=== PATIENT | male | born 1960 | race Caucasian/White ===

== ENCOUNTER 2020-08-06 14:03 | Inpatient (IN) | payer SELFPAY ==
[2020-08-06] VITALS (7 sets, daily range): BP systolic 129–143; BP diastolic 80–95; PULSE 63–89; RESP 15–16; TEMP 36.6–36.8; O2SAT 97–98; BMI 28.7
--- NOTE | ~2020-08-06 | US_ITS ---
EXAMINATION: US venous doppler LE EXAM DATE: 08/07/2020 15:29 INDICATION: Acute stroke, right leg swelling. TECHNIQUE: Multiple grayscale, color flow and Doppler images of the lower extremity deep venous syste ms bilaterally were obtained and reviewed. There is no prior study for comparison. FINDINGS: Right side: The right common femoral, femoral and profunda veins demonstrate normal color flow, respi ratory variation, augmentation and compressibility. Compressibility, color flow confirmed within the right popliteal, posterior tibial, peroneal, and greater saphenous veins. Left side: The left common femoral, femoral and profunda veins demonstrate normal color flow, respira tory variation, augmentation and compressibility. Compressibility, color flow confirmed within the l eft popliteal, posterior tibial, peroneal, and greater saphenous veins. IMPRESSION: 1. No lower extremity deep venous thrombosis bilaterally. Reviewed, dictated and finalized at location A.
--- NOTE | ~2020-08-06 | CT_ITS ---
EXAMINATION: CT brain wo con EXAM DATE: 08/06/2020 17:14 INDICATION: Severe headache . TECHNIQUE: Spiral CT of the head was performed without contrast. Axial, coronal and sagittal images were reviewed. The dose-length product (DLP) for this examination was 605.33 mGy-cm. The exposure w as tailored according to patient size, and iterative reconstruction (ASIR) was used as additional dos e reduction technique. There is no prior study for comparison. FINDINGS: There are several small left cerebellar infarctions which are at least 24 hours, could be a cute to subacute. There is no acute intraparenchymal hemorrhage. No evidence of intraparenchymal brain mass lesion. T here is no mass effect or midline shift. The ventricles are normal in size. There are no extra-axia l collections. There are no acute calvarial fractures. The orbits are unremarkable. Soft tissue is unremarkable. The visualized sinuses and mastoid air cells are well aerated. IMPRESSION: 1. Several small left cerebellar infarctions, could be acute to subacute. Reviewed, dictated and finalized at location A.
--- NOTE | ~2020-08-06 | US_ITS ---
EXAMINATION: US carotid duplex BI EXAM DATE: 08/07/2020 10:20 INDICATION: Left cerebellar strokes. Severe headache, dizziness, lightheadedness. TECHNIQUE: Grayscale, color and pulsed Doppler images of the cervical carotid arteries were obtained . The degree of vessel stenosis is placed in one of the following categories: normal, <50% stenosis, 50-69% stenosis, >=70% stenosis but less than near-occlusion, near-occlusion, or occlusion. Note that percent stenosis relative to normal distal artery lumen diameter is indirectly measured from velocit y measurements as described by Malik, et al. Radiology 2003; 229:340-346. There is no prior study fo r comparison. FINDINGS: RIGHT SIDE: Right common carotid artery peak systolic velocity (PSV in cm/s): 138 Right bulb/internal carotid artery peak systolic velocity (PSV in cm/s): 128 Right internal carotid artery end diastolic velocity (EDV in cm/s): 27 Right ICA/CCA peak systolic ratio: 0.9 Right external carotid artery peak systolic velocity (PSV in cm/s): 189 Right vertebral artery antegrade flow: yes There is minimal carotid bulb plaque with discordant mildly elevated velocity. Visually, less than 50% stenosis category. LEFT SIDE: Left common carotid artery peak systolic velocity (PSV in cm/s): 136 Left bulb/internal carotid artery peak systolic velocity (PSV in cm/s): 159 Left internal carotid artery end diastolic velocity (EDV in cm/s): 36 Left ICA/CCA peak systolic ratio: 1.2 Left external carotid artery peak systolic velocity (PSV in cm/s): 136 Left vertebral artery antegrade flow: No, reversed There is mild carotid bulb plaque with discordant mildly elevated velocity. Visually, less than 50% stenosis category. IMPRESSION: 1. Less than 50 percent stenosis in the right internal carotid artery. 2. Less than 50 percent stenosis in the left internal carotid artery. 3. Mild reversal flow demonstrated in the left vertebral artery, however no subclavian artery stenos is on the yesterday's CT angiogram. 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 Both vertebral arteries appear congenitally small. > Reviewed, dictated and finalized at location A. IMPRESSION: 1. Less than 50 percent stenosis in the right internal carotid artery. 2. Less than 50 percent stenosis in the left internal carotid artery. 3. Mild reversal flow demonstrated in the left vertebral artery, however no scott bclavian artery stenosis on the yesterday's CT angiogram. 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 Both vertebral arteries appear congenitally small. >
--- NOTE | ~2020-08-06 | MR_ITS ---
EXAMINATION: MR brain/brain stem wo/w con EXAM DATE: 08/07/2020 07:44 INDICATION: Cerebellar stroke, lightheadedness resolved, left frontal headache. Abnormal head CT. TECHNIQUE: Magnetic resonance imaging (MRI) of the brain/brain stem obtained without contrast. Sagit gage T1, axial diffusion, gradient echo (T2*), T1, T2, FLAIR sequences obtained. Patient was then inj ected with 20 cc intravenous Multihance contrast. Axial and coronal postcontrast T1 weighted sequence s obtained. Correlation is made to head CT from yesterday. FINDINGS: There are several small acute to subacute infarctions in the left side of the cerebellum, t hese were the lesion seen on CT and demonstrate low T1 signal. There is an acute larger left cerebell ar infarction inferiorly which was not identified on CT, is more recent than the other smaller infarc tions. Minimal microangiopathy in mild cerebral atrophy. There is no acute hemorrhage seen on the T2*, a hem osiderin sensitive sequence. No intraparenchymal brain mass. The ventricles are normal in size. The re are no extra-axial collections. Flow voids are seen in the cerebral arteries on the T2-weighted s equences consistent with their expected patency. The orbits are unremarkable. Soft tissue is unrema rkable. There are no areas of abnormal enhancement on the postcontrast images. IMPRESSION: Scattered left cerebellar infarctions involving approximately 50% of left cerebellar peyton sphere, bearing ages from acute to early subacute. Reviewed, dictated and finalized at location G. IMPRESSION: Scattered left cerebellar infarctions involving approximately 50% o f left cerebellar hemisphere, bearing ages from acute to early subacute.
--- NOTE | ~2020-08-06 | CT_ITS ---
EXAMINATION: CTA brain carotid EXAM DATE: 08/06/2020 18:19 INDICATION: Dizziness, lightheadedness, headaches since [address], left cerebellar infarctions believed to be acute-subacute. TECHNIQUE: Spiral CTA of the carotid arteries was performed with intravenous injection 100 cc of Om nipaque 350. Axial, coronal, sagittal reformatted images reviewed. Additional reformatted images cre ated on dedicated 3-D workstation. NASCET comparable standard used to assess the degree of arterial stenosis. Spiral CT angiogram cerebral arteries performed with the same intravenous injection of con trast. Source images of the brain CTA transferred to dedicated workstation for 3-D rotational image c reation. Coronal, sagittal maximum intensity pixel images also reviewed. The dose-length product (D LP) for this examination was 1216.07 mGy-cm. The exposure was tailored according to patient size, a nd iterative reconstruction (ASIR) was used as additional dose reduction technique. Correlation is ma de to noncontrast head CT earlier same date. FINDINGS: Mild bilateral carotid bulb arterial sclerosis with 0% stenosis bilaterally. Both vertebral arteries are small, left appears occluded proximally with reconstitution along the cervical spine. There is no carotid or vertebral basilar arterial dissection or fibromuscular dysplasia. There are no cerebral artery aneurysms. There is symmetric cerebral artery arborization. The sagittal, transverse and sigmoid sinuses enhance normally, no venous sinus thrombosis. Internal cerebral veins also enhan ce normally. Several left cerebellar hypodensities again noted probably acute to subacute infarctions. IMPRESSION: 1. Several small left cerebellar hypodensities consistent with acute to subacute infarctions. 2. Bilateral carotid bulb 0% stenosis. No dissection. Reviewed, dictated and finalized at location A. IMPRESSION: 1. Several small left cerebellar hypodensities consistent with acute to subacu te infarctions. 2. Bilateral carotid bulb 0% stenosis. No dissection.
--- NOTE | 2020-08-06 14:06 | ECG_ITS ---
Measurements Intervals Dania Rate: 65 P: 42 DE: 167 QRS: 63 QRSD: 101 T: 18 QT: 403 QTc: 420 Interpretive Statements SINUS RHYTHM DELAYED PRECORDIAL R/S TRANSITION BASELINE WANDER- II, III, AVF, V4 BORDERLINE ECG Electronically Signed On 08-06-2020 17:26:39 CDT by Armando Huerta D.O.
[2020-08-06 14:22] LABS: Basophils Absolute Auto 0.1 K/mm3 (0.0-0.1); Basophils Percent Auto 0.8 % (0.2-1.2); Eosinophils Absolute Auto 0.1 K/mm3 (0-0.3); Eosinophils Percent Auto 1.7 % (0-4.4); Hematocrit 49.1 % (42.0-52.0); Hemoglobin 16.3 g/dL (14.0-18.0); Immature Granulocyte Absolute 0.06 K/mm3 (0.00-0.031); Immature Granulocyte Percent A 0.8 % (0-0.5); Lymphocytes Absolute Auto 1.73 K/mm3 (0.9-3.2); Lymphocytes Percent Auto 22.1 % (18.3-44.2); Mean Corpuscular HGB Conc 33.2 g/dl (32-36); Mean Corpuscular Hemoglobin 28.8 pg (26-34); Mean Corpuscular Volume 86.7 fl (80-100); Mean Platelet Volume 10.8 fl (7.4-10.4); Monocytes Absolute Auto 0.5 K/mm3 (0.1-0.6); Monocytes Percent Auto 6.9 % (2.6-8.5); Neutrophils Absolute Auto 5.3 K/mm3 (1.3-6.7); Neutrophils Percent Auto 67.7 % (45.5-73.1); Platelet Count Result 242 k/mm3 (150-375); Red Blood Count 5.66 M/mm3 (4.6-6.20); Red Cell Distribution Width 13.6 % (11.5-14.5); White Blood Count 7.8 K/mm3 (4.5-10.0)
[2020-08-06 14:37] LABS: Anion Gap 12 mmol/L (8-16); Blood Urea Nitrogen 17 mg/dL (9-20); Carbon Dioxide 21 mmol/L (22-30); Chloride 107 mmol/L (98-107); Estimated CRCL calculation 83 ml/min; Estimated Glomerular Filt Rate > 60; Glucose 250 mg/dL (75-110); Sodium 140 mmol/L (137-145)
--- NOTE | 2020-08-06 15:28 | ED.DIZZY ---
HPI - Dizziness General Chief Complaint: Dizziness Stated Complaint: dizzy Time Seen by Provider: 08/06/20 15:19 History of Present Illness HPI Narrative: 60 yo male w/ h/o htn, DM presents to the ED from home for dizziness. He reports that he was driving when he suddenly became light headed and had to toe puller. this was associated with feeling warm and mildly nauseated. He had a previous episode this morning tara standing up from kneeling. That lasted only a few seconds. No chest pain, SOB, vomiting, fever. Related Data Allergies Allergy/AdvReac Type Severity Reaction Status Date / Time Sulfa (Sulfonamide Allergy Rash Verified 08/06/20 15:32 Antibiotics) Review of Systems Review of Systems: All systems reviewed & are unremarkable except as noted in HPI and below Constitutional: Constitutional: Denies chills, Denies fever(s) and Denies weakness Eyes: Eyes: Reports no additional eye complaints ENT: Reports dizziness Cardiovascular: Cardiovascular: Denies chest pain Respiratory: Respiratory: Denies dyspnea Gastrointestinal: Gastrointestinal: Denies abdominal pain, Denies diarrhea, Reports nausea and Denies vomiting Genitourinary: Genitourinary: Reports no additional male genitourinary complaints Musculoskeletal: Musculoskeletal: Denies back pain Neurologic: Reports dizziness, Denies syncope, Reports headache(s), Denies numbness and Denies weakness REPLACED BY [facility] Past Medical History Medical History (Updated 08/06/20 @ 18:04 by Malik Mcarthur MD) Diabetes mellitus HTN (hypertension) Social History Social History (Updated 08/06/20 @ 16:37 by Malik Mcarthur MD) Substance use: never Exam Const: General: healthy appearing, no acute distress and alert Orientation/consciousness: patient oriented x3 HENMT: Head: normal to inspection Ears: TM's normal bilaterally and EAC's normal Face and sinus: normal facial exam Eyes: Conjunctivae: conjunctivae normal Pupils: Equal, round and reactive pupils present EOM: EOMs intact bilaterally Neck: Neck: normal visual inspection and no lymphadenopathy Chest: Chest palpation & inspection: no tenderness Resp: Effort & Inspection: normal respiratory effort Auscultation: clear to auscultation bilaterally, no rales, no rhonchi and no wheezes Cardio: Jugular venous distension: no JVD Rate: regular rate Rhythm: regular rhythm Heart sounds: no murmurs GI: Inspection: non-distended GI Palp: Yes Soft to palpation and No Tenderness to palpation present (GI) Skin: General skin exam: normal color Neuro: General: patient oriented x3, moves all extremities, no focal motor deficits and CN's II-XI intact bilaterally Cranial nerves: Yes Nystagmus not present and Yes Midline tongue present Cognition (Neuro): normal cognition Speech: normal speech Gait exam (Neuro): Normal gait present Motor exam (neuro): 5/5 motor strength present throughout, Pronator motor function not present and Normal motor muscle tone present throughout Sensory Exam: normal sensation Coordination: [id number] test normal and [id number] test normal Extrem: General: normal to inspection and no edema Psych: Appearance: well kempt Affect: normal affect Course Vital Signs Vital signs: Vital Signs Temperature 36.8 C 08/06/20 14:06 Pulse Rate 63 08/06/20 14:06 Respiratory Rate 16 08/06/20 14:06 Blood Pressure 134/80 08/06/20 14:06 Pulse Oximetry 98 08/06/20 14:06 Temperature 36.8 C 08/06/20 14:06 Pulse Rate 82 08/06/20 17:31 Respiratory Rate 15 08/06/20 17:31 Blood Pressure 142/92 H 08/06/20 17:31 Pulse Oximetry 98 08/06/20 17:31 MDM - Dizziness MDM Narrative Medical decision making narrative: Stroke scale 0. Symptoms have completely resolved. No indication for TPA. He will need admission for further testing and risk reduction. Pateint discussed with Dr. Kendrick. He will consult Differential Diagnosis Differential diagnosis: Likely benign par
[2020-08-06] MEDS: MECLIZINE HCL 25 MG TABLET PO (16:14)
[2020-08-06] MEDS: SODIUM CHLORIDE 0.9% IV 1,000 ML 999 ML IV CONT (16:16)
[2020-08-06] MEDS: METOCLOPRAMIDE HCL INJ 10 MG/2 ML VIAL IV PUSH (17:30)
[2020-08-06] MEDS: ASPIRIN 81 MG CHEWABLE TABLET 324 MG PO (18:20)
--- NOTE | 2020-08-06 18:36 | PC.NURSE ---
SBAR faxed and 3 medsurg notified
--- NOTE | 2020-08-06 19:59 | ADMGEN ---
This patient, Tommy Lamar, was admitted to [facility] Surg Room 328-01. Patient/family oriented to hospital policies and general routines including ID bracelet, bed and alarms, visiting hours, pain management, procedures, bathroom and other care routines, personal items, smoking policy, room service/diet, and visiting hours. Information on how to activate the Rapid Response Team has been discussed. Patient/Family are encouraged to report perceived risks to care and to ask questions if they do not understand what they are told or what they should do.
--- NOTE | 2020-08-06 23:57 | PM.IMHP ---
H&P: HPI History of Present Illness Date/Time: 08/06/20 23:57 Near syncope Chief Complaint: Near-syncope Narrative: This is a 60-year-old male with past medical history significant for type 2 diabetes mellitus hypertension and degenerative joint disease fusion surgery of the right ankle carpal tunnel syndrome patient was driving himself today to work when he had an episode of warmth tingling and dizziness while driving he taffy puller the pull-up over to the shoulder and was brought to the emergency room patient has been in his usual state of health up until this happen in the morning he states that he had taken his usual medications in the morning and had breakfast. He denies any fevers chills rigors ,nausea, vomiting ,diarrhea, abdominal pain, headaches ,changes in vision, no focal weakness ,no chest pain ,no palpitations ,no PND ,no orthopnea ,no leg swelling. Preliminary workup was significant for acute to subacute cerebellar infarcts on the CTA of head and neck. At the time of my visit patient denied any concerns or issues no complaints. Review of Systems Review of Systems: Narrative: Patient had episode of wire with dizziness near-syncope while driving Constitutional: Constitutional: Denies chills, Denies fatigue, Denies fever(s), Denies poor appetite and Denies weakness Eyes: Eyes: Denies change in vision ENT: Denies vertigo, Reports dizziness, Denies hearing loss, Denies nasal congestion and Denies nasal discharge Cardiovascular: Cardiovascular: Denies chest pain, Denies leg edema, Reports lightheadedness, Denies radiating jaw, neck or arm pain, Denies palpitations and Denies dyspnea Respiratory: Respiratory: Denies cough and Denies dyspnea Gastrointestinal: Gastrointestinal: Denies abdominal pain, Denies GI cramping, Denies dysphagia, Denies dyspepsia, Denies heartburn, Denies nausea and Denies vomiting Genitourinary: Genitourinary: Denies dysuria Musculoskeletal: Musculoskeletal: Denies arthralgias and Denies joint swelling Comments: Right ankle fusion Integumentary/Breasts: Skin/Breast: Denies skin ulcer and Denies sores Neurologic: Denies Abnormal speech present, Denies dizziness, Denies syncope, Denies focal weakness, Denies loss of vision, Denies Sensory deficit (Neuro) and Denies tingling Hematologic/Lymphatic: Hematologic/Lymphatic: Denies no additional hematologic/lymphatic complaints Allergic/Immunologic: Allergic/Immunologic: Denies no additional allergic/immunologic complaints [facility] Past Medical History Medical History (Updated 08/07/20 @ 00:00 by Misti Dahl MD) Diabetes mellitus HTN (hypertension) Family History Family History (Updated 08/06/20 @ 22:48 by Clara Garcia RN) Father Diabetes mellitus Mother Diabetes mellitus Father Non-Hodgkin lymphoma Social History Social History (Updated 08/06/20 @ 16:37 by Malik Mcarthur MD) Alcohol intake: former Substance use: never Gender identity (if verbalized by the patient): Male Spiritual care concerns: No Meds Home Medications and Allergies Home Medications Medication Instructions Recorded Confirmed Type Actos 45 mg PO DAILY 08/06/20 08/06/20 History atenolol 50 mg PO BID 08/06/20 08/06/20 History glyburide 10 mg PO BID 08/06/20 08/06/20 History lisinopril 5 mg BYMOUTH DAILY 08/06/20 08/06/20 History lovastatin 20 mg PO DAILY 08/06/20 08/06/20 History metformin 1,000 mg PO BID 08/06/20 08/06/20 History Allergies Allergy/AdvReac Type Severity Reaction Status Date / Time Sulfa (Sulfonamide Allergy Intermediate Rash Verified 08/06/20 20:19 Antibiotics) Vital Signs Vital Signs - 24 hr 08/06/20 14:06 08/06/20 15:33 08/06/20 15:34 Temperature 98.3 F Pulse Rate 63 69 67 Respiratory Rate 16 Blood Pressure 134/80 134/84 136/95 H Pulse Oximetry 98 08/06/20 15:36 08/06/20 17:31 08/06/20 19:38 Temperature Pulse Rate 74 82 89 Respiratory Rate 15 16 Blood Pressure 129/91 H 142/92 H 139/
[2020-08-07] VITALS (10 sets, daily range): BP systolic 134–141; BP diastolic 65–75; PULSE 72–86; RESP 16–18; TEMP 36.2–37.1; O2SAT 95–97
--- NOTE | 2020-08-07 | ECHO_ITS ---
Patient Info Name: Tommy Lamar Age: 60 years : 1960 Gender: Male Ht: 74 in Wt: 223 lbs BSA: 2.32 m2 HR: 81 bpm BP: 135 / 75 mmHg Heart Rhythm: Sinus Rhythm Technical Quality: Good Exam Date: 08/07/2020 12:25 PM Exam Location: [facility] Card Pulmonary Patient Status: Inpatient Admit Date: 08/06/2020 Staff Ordering Physician: Malik Mcarthur MD Acid Remover: FRANCES Attending Provider: Loretta Cifuentes MD Referring Physician: Blue RODRIGUEZ; Exam Type: CA echo doppler color flow Study Info Complete two-dimensional, color flow and Doppler transthoracic echocardiogram is performed. Summary 1. Complete two-dimensional, color flow and Doppler transthoracic echocardiogram is performed. 2. Left ventricular chamber size, wall thickness, systolic and diastolic function are normal with no regional wall motion abnormalities with an estimated ejection fraction of 65-70%. 3. No significant valve disease. 4. Normal sinus rhythm. Left Ventricle Left ventricular chamber dimension is normal. Left ventricular systolic function is normal, estimated at 65-70%. There is no increased left ventricular wall thickness. Left ventricular septal wall motion is normal. The left ventricular diastolic function is normal. Left ventricular chamber size, wall thickness, systolic and diastolic function are normal with no regional wall motion abnormalities with an estimated ejection fraction of 65-70%. Right Ventricle Right ventricular chamber dimension is normal. Right ventricular systolic function is normal. Left Atria Left atrial chamber dimension is normal. Right Atria Right atrial chamber dimension is normal. Aortic Valve The aortic valve is trileaflet. There is no aortic valve sclerosis. There is no aortic valve stenosis. There is no aortic valve regurgitation. Pulmonic Valve The pulmonic valve is normal. There is no pulmonic valve stenosis. There is no pulmonic regurgitation. Mitral Valve The mitral valve has normal leaflets. There is no mitral valve stenosis. There is no mitral valve regurgitation. Tricuspid Valve The tricuspid valve leaflets are normal. There is no significant tricuspid valve stenosis. There is trace tricuspid valve regurgitation. No pulmonary hypertension, estimated pulmonary arterial systolic pressure is Empty. Pericardium/Pleural The pericardium appears normal. There is no pericardial effusion. Inferior Vena Cava Normal inferior vena cava with >50% collapse upon inspiration consistent with Empty right atrial pressure, Empty. Aorta The aortic root size at the sinus of Valsalva is normal. The prox ascending aorta size is normal. Left Ventricular Outflow Tract Name Value Normal LVOT 2D LVOT Diameter 2.3 cm LVOT Doppler LVOT Peak Velocity 101 cm/s LVOT Peak Gradient 3 mmHg LVOT Mean Gradient 2 mmHg LVOT VTI 27 cm LVOT VTI/AV VTI Ratio 1.1 LVOT Stroke Volume 113 ml LV
--- NOTE | 2020-08-07 08:50 | ADMGEN ---
This patient, Tommy Lamar, was admitted to 3 [facility] Surg Room 328-01. Patient/family oriented to hospital policies and general routines including ID bracelet, bed and alarms, visiting hours, pain management, procedures, bathroom and other care routines, personal items, smoking policy, room service/diet, and visiting hours. Information on how to activate the Rapid Response Team has been discussed. Patient/Family are encouraged to report perceived risks to care and to ask questions if they do not understand what they are told or what they should do. blood sugars ordered for AC/HS and low dose sliding scale per Monika K. Blood sugar 151, so no coverage needed and will start at noon.
[2020-08-07] MEDS: lisinopriL 5 MG TABLET BY MOUTH (08:52)
[2020-08-07] MEDS: atenoloL 50 MG TABLET PO ×2 (08:52→20:23)
[2020-08-07 09:50] LABS: Glucose Point of Care 151 (65-105)
[2020-08-07 12:26] LABS: Glucose Point of Care 158 (65-105)
--- NOTE | 2020-08-07 12:58 | WPDNEURCNPN ---
Assessment and Plan Assessment and plan (1) Acute ischemic stroke: Code(s): I63.9 - Cerebral infarction, unspecified Status: Acute Additional Plan 60 years old admitted to the hospital for type 2 diabetes mellitus evaluation documented the subacute cerebellar infarct on the CTA of the head and neck confirmed by the MRI as the scattered left cerebellar infarctions with no mention about the edema. Patient himself has noted some gait dysfunction over the last several weeks raising the possibility of the tumor versus the old stroke. Was going to start him on Decadron but I will hold down because there is no significant edema and also will be able to better clarify with the ear with dealing with the old lesion, metastatic lesion or the new stroke Consult date: 08/07/20 Time Seen: 13:00 HPI: Tommy Lamar is a 60 year old male admitted to the hospital through the emergency room for the complaints of near syncopal in addition to the ongoing history of 1. Type 2 diabetes mellitus 2. Hypertension 3. Degenerative joint disease with history of right ankle surgery 4. Carpal syndrome. As per the information available patient was driving himself to work when he had an episode of vomitus, tingling sensation, and dizziness when he pulled over to the shoulder and then brought to the emergency room he gave no history of associated generalized symptomatology but initial evaluation in the emergency room documented him to have subacute cerebellar his stroke on CTA of the head and neck, as mentioned before past history is consistent with diabetes mellitus, being a former alcohol drinker but never substance abuser and taking his medications regularly for that is Actos, glyburide, lisinopril, lovastatin, and metformin, initial routine lab studies were unremarkable including CBC and BMP except the blood sugar of 158, the CT scan reveals several small left cerebellar infarction which could be secondary to the acute or subacute stroke in addition MRI documented scattered left cerebellar infarction involving approximately 50% of the left cerebellar hemisphere and the CTA documented again several small left cerebellar hypodensities consistent with acute to subacute infarction but bilateral carotid bulb only 0% stenosis patient at this stage is receiving Actos 45 mg daily along with glyburide 10 mg twice a day lisinopril 5 mg daily and lovastatin 20 mg daily in addition to metformin 1000 mg twice a day Review of Systems Review of Systems: All systems reviewed & are unremarkable except as noted in HPI and below PMFSH Past Medical History Medical History Diabetes mellitus HTN (hypertension) Family History Family History Father Diabetes mellitus Mother Diabetes mellitus Father Non-Hodgkin lymphoma Social History Social History Alcohol intake: former Substance use: never Gender identity (if verbalized by the patient): Male Spiritual care concerns: No Meds Home Medications and Allergies Home Medications Medication Instructions Recorded Confirmed Type Actos 45 mg PO DAILY 08/06/20 08/06/20 History atenolol 50 mg PO BID 08/06/20 08/06/20 History glyburide 10 mg PO BID 08/06/20 08/06/20 History lisinopril 5 mg BYMOUTH DAILY 08/06/20 08/06/20 History lovastatin 20 mg PO DAILY 08/06/20 08/06/20 History metformin 1,000 mg PO BID 08/06/20 08/06/20 History Allergies Allergy/AdvReac Type Severity Reaction Status Date / Time Sulfa (Sulfonamide Allergy Intermediate Rash Verified 08/06/20 20:19 Antibiotics) Vital Signs Vital Signs - 24 hr 08/06/20 14:06 08/06/20 15:33 08/06/20 15:34 Temperature 36.8 C Pulse Rate 63 69 67 Respiratory Rate 16 Blood Pressure 134/80 134/84 136/95 H Pulse Oximetry 98 08/06/20 15:36 08/06/20 17:31 08/06/20 19:38 Temperature Pulse Rate 74
--- NOTE | 2020-08-07 17:16 | PM.IMPN ---
Progress Note: A&P Assessment and Plan (1) Acute ischemic stroke: Code(s): I63.9 - Cerebral infarction, unspecified Status: Acute Assessment and Plan: EKG : sinus rhythm HR 65bpm ordered BLE DVT US. treating headaches Neurologist consulted, following recommendations STarted 81 mg Aspirin Echocardiogram done, awaiting report. MRI : Scattered left cerebellar infarctions involving approximately 50% of left cerebellar hemisphere, bearing ages from acute to early subacute. PT/OT Discontinued Lovastatin 20mg to Lipitor 40 mg daily Started Plavix today Carotid Doppler: Less than 50 percent stenosis in the right internal carotid artery. Less than 50 percent stenosis in the left internal carotid artery. Mild reversal flow demonstrated in the left vertebral artery, however no subclavian artery stenosis on the yesterday's CT angiogram. 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 Both vertebral arteries appear congenitally small. (2) T2DM (type 2 diabetes mellitus): Code(s): E11.9 - Type 2 diabetes mellitus without complications Status: Acute Assessment and Plan: Holding metformin, Actos, and glyburide Low dose Insulin sliding scale as needed 1800 calorie restricted diet - diabetic diet Accu-Cheks AC and HS checking A1C (3) HTN (hypertension): Code(s): I10 - Essential (primary) hypertension Status: Inactive Assessment and Plan: Resume home meds: atenolol, lisinopril Continue telemetry monitoring blood pressure controlled 135/75- 143/90 heart rate 72-89 no edema no crackles no sign of fluid overload or CHF Additional Plan 60 years old admitted to the hospital for type 2 diabetes mellitus evaluation documented the subacute cerebellar infarct on the CTA of the head and neck confirmed by the MRI as the scattered left cerebellar infarctions with no mention about the edema. Patient himself has noted some gait dysfunction over the last several weeks raising the possibility of the tumor versus the old stroke. Was going to start him on Decadron but I will hold down because there is no significant edema and also will be able to better clarify with the ear with dealing with the old lesion, metastatic lesion or the new stroke Subjective Date/time seen: 08/07/20 17:16 Tommy was resting in bed when I went to examine him. He was feeling better at the time of my exam. He is not having any unilateral weakness or paresthesias. He has history of a fused right ankle. 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 He denies any leg swelling, redness, or pain. He denies any chest pressure, chest pain, shortness of breath or dyspnea. He denies any trauma or possible source of infection. He denies any malaise or illness or periods of low ambulation or low activity. He admitted to having a headache since yesterday when this all started . He described his headache as perhaps being a sinus headache, and showed the location to be frontal lobe region. I have ordered flonase, claritin, IV tylenol, and will follow up with the nurse/patient to see if he needs any further intervention. He is not having any chest pain pressure, no shortness of breath or dyspnea, denies nausea vomiting diarrhea or constipation. He denies pain or blood with urination or with bowel movements. His CT scan of the brain showed several small left hypodensities of acute and subacute infarcts, no carotid stenosis and no dissection. He did not receive any tPA intervention, as his symptoms had been going on for a couple of weeks, with most recent episode yesterday morning and then he presented to the ER yesterday afternoon. His EKG at admission was sinus with a 65 beats per minute rate, his heart rhythm is regular at this time of my exam. His white count is 7.8, he has no known fevers, creatinine
[2020-08-07 17:20] LABS: Glucose Point of Care 191 (65-105)
[2020-08-07] MEDS: CLOPIDOGREL BISULFATE 75 MG TABLET PO (18:15)
[2020-08-07] MEDS: FLUTICASONE PROPIONATE 0.05% NA SPR 16 GM BTL (*BKC) 1 SPRAY NASAL (18:16)
[2020-08-07] MEDS: LORATADINE 10 MG TABLET PO (18:16)
[2020-08-07] MEDS: ATORVASTATIN 40 MG TABLET PO (18:17)
[2020-08-07] MEDS: ASPIRIN 81 MG ENTERIC TABLET PO (18:17)
[2020-08-07] MEDS: INSULIN ASPART (*BKC) 100 UNITS/ML SUB-Q (18:18)
--- NOTE | 2020-08-07 21:46 | PC.NURSE ---
Patient left at 2124, signing an AMA form. He appeared anxious, talking about his twin children and something about his partner having a stroke. He said that they required his presence at another hospital to discuss medical decisions for his unresponsive child.
[2020-08-07 22:52] LABS: Glucose Point of Care 222 (65-105)
[2020-08-08] VITALS (9 sets, daily range): BP systolic 131–164; BP diastolic 78–97; PULSE 74–88; RESP 16–20; TEMP 35.9–36.6; O2SAT 96–99
[2020-08-08 07:03] LABS: Basophils Absolute Auto 0.1 K/mm3 (0.0-0.1); Basophils Percent Auto 0.5 % (0.2-1.2); Eosinophils Absolute Auto 0.2 K/mm3 (0-0.3); Eosinophils Percent Auto 1.7 % (0-4.4); Hematocrit 44.6 % (42.0-52.0); Immature Granulocyte Absolute 0.03 K/mm3 (0.00-0.031); Immature Granulocyte Percent A 0.3 % (0-0.5); Lymphocytes Absolute Auto 1.64 K/mm3 (0.9-3.2); Lymphocytes Percent Auto 17.4 % (18.3-44.2); Mean Corpuscular HGB Conc 33.6 g/dl (32-36); Mean Corpuscular Hemoglobin 29.6 pg (26-34); Mean Platelet Volume 10.5 fl (7.4-10.4); Monocytes Absolute Auto 0.7 K/mm3 (0.1-0.6); Monocytes Percent Auto 7.1 % (2.6-8.5); Neutrophils Absolute Auto 6.9 K/mm3 (1.3-6.7); Platelet Count Result 206 k/mm3 (150-375); Red Blood Count 5.07 M/mm3 (4.6-6.20); Red Cell Distribution Width 13.5 % (11.5-14.5); White Blood Count 9.4 K/mm3 (4.5-10.0)
[2020-08-08 07:14] LABS: Alanine Aminotransferase 25 U/L (4-50); Alkaline Phosphatase 63 U/L (38-126); Anion Gap 6 mmol/L (8-16); Aspartate Amino Transferase 33 U/L (17-59); Bilirubin,Total 0.7 mg/dL (0.2-1.3); Blood Urea Nitrogen 15 mg/dL (9-20); CRP < 0.5 mg/dL (<1.0); Calcium 8.9 mg/dL (8.4-10.2); Carbon Dioxide 24 mmol/L (22-30); Chloride 108 mmol/L (98-107); Estimated CRCL calculation 83 ml/min; Estimated Glomerular Filt Rate > 60; Glucose 151 mg/dL (75-110); Potassium 3.7 mmol/L (3.4-5.0); Sodium 138 mmol/L (137-145)
[2020-08-08 07:18] LABS: Prothrombin Time 13.5 Seconds (11.1-14.7)
[2020-08-08 07:21] LABS: NT Pro B Type Natriuretic Pept 64 pg/mL (5-100)
[2020-08-08 07:34] LABS: Hemoglobin A1C 7.4 % (<5.7)
[2020-08-08 08:05] LABS: Erythrocyte Sedimentation Rate 20 mm/hr (0-20)
[2020-08-08 08:07] LABS: Glucose Point of Care 143 (65-105)
[2020-08-08] MEDS: ASPIRIN 81 MG ENTERIC TABLET PO (08:47)
[2020-08-08] MEDS: ATORVASTATIN 40 MG TABLET PO (08:47)
[2020-08-08] MEDS: lisinopriL 5 MG TABLET BY MOUTH (08:47)
[2020-08-08] MEDS: LORATADINE 10 MG TABLET PO (08:47)
[2020-08-08] MEDS: atenoloL 50 MG TABLET PO ×2 (08:48→21:15)
[2020-08-08] MEDS: CLOPIDOGREL BISULFATE 75 MG TABLET PO (08:49)
[2020-08-08] MEDS: diazePAM (*CRX) 2 MG TABLET PO (11:02)
[2020-08-08] MEDS: HYDROcodone/acetaminophen (*CRX) 5-325 MG TABLET 1 TAB PO (11:02)
[2020-08-08 11:36] LABS: Glucose Point of Care 156 (65-105)
--- NOTE | 2020-08-08 12:17 | PM.IMPN ---
Progress Note: A&P Assessment and Plan (1) Acute ischemic stroke: Code(s): I63.9 - Cerebral infarction, unspecified Status: Acute Assessment and Plan: EKG : sinus rhythm HR 65bpm ordered BLE DVT US. treating headaches Neurologist consulted, following recommendations: Decadron 4mg Q 6 hours for 5 days, with repeat Brain MRI in 2 weeks. STarted 81 mg Aspirin Echocardiogram done, awaiting report. MRI : Scattered left cerebellar infarctions involving approximately 50% of left cerebellar hemisphere, bearing ages from acute to early subacute. PT/OT Discontinued Lovastatin 20mg and increased to Lipitor 40 mg daily Started Plavix yesterday Carotid Doppler: Less than 50 percent stenosis in the right internal carotid artery. Less than 50 percent stenosis in the left internal carotid artery. Mild reversal flow demonstrated in the left vertebral artery, however no subclavian artery stenosis on the yesterday's CT angiogram. 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 Both vertebral arteries appear congenitally small. (2) T2DM (type 2 diabetes mellitus): Code(s): E11.9 - Type 2 diabetes mellitus without complications Status: Acute Assessment and Plan: Holding metformin, Actos, and glyburide Low dose Insulin sliding scale as needed 1800 calorie restricted diet - diabetic diet Accu-Cheks AC and HS checking A1C = 7.4 which patient stated is much improved, working hard with PCP to control better (3) HTN (hypertension): Code(s): I10 - Essential (primary) hypertension Status: Inactive Assessment and Plan: Resume home meds: atenolol, lisinopril Continue telemetry monitoring blood pressure controlled SBPs 130s heart rate 84 no edema no crackles no sign of fluid overload or CHF (4) Frontal headache: Code(s): R51.9 - Headache, unspecified Status: Acute Assessment and Plan: headache persists now for 2-3 days, improving slowly each day. may be anxiety or allergy related. BUT No evidence of Sinusitis on head scans. Ordered Flonase & clairitin, refusing Flonase. Encourage patient to increase his oral hydration, as he has only taken in approx. 1 L and then 1.5 L over the last 2 days. Treating headache with Valium and [place] today/overnight. Evaluation tomorrow morning for headache resolution prior to discharge. MUST continue to avoid Imitrex due to CVA. headache now improved to 1-2 level/10 after valium/[place]. Planning for discharge tomorrow, if no new concerns over night. Additional Plan 60 years old admitted to the hospital for type 2 diabetes mellitus evaluation documented the subacute cerebellar infarct on the CTA of the head and neck confirmed by the MRI as the scattered left cerebellar infarctions with no mention about the edema. Patient himself has noted some gait dysfunction over the last several weeks raising the possibility of the tumor versus the old stroke. Was going to start him on Decadron but I will hold down because there is no significant edema and also will be able to better clarify with the ear with dealing with the old lesion, metastatic lesion or the new stroke Subjective Date/time seen: 08/08/20 12:17 Tommy' headache persists. He is anxious about his vehicle being in lock up today and worked up about how he will get home at discharge. Encourage patient to increase his oral hydration, as he has only taken in approx. 1 L and then 1.5 L over the last 2 days. Starting Decadron 4mg Q 6 hours for 5 days per Neurologist, with repeat Brain MRI in 2 weeks. Treating headache with Valium and [place] today/overnight. No evidence of Sinusitis on head scans. Ordered him Flonase and clairitin, refusing Flonase at this time. Evaluation tomorrow morning for headache resolution prior to discharge. MUST continue to avoid Imitrex due to CVA. Planning for discharge tomorrow, if no new concerns over night. Review of Systems Review o
--- NOTE | 2020-08-08 12:41 | WPDNEUROPN ---
Progress Note: A&P Assessment and Plan (1) Acute ischemic stroke: Code(s): I63.9 - Cerebral infarction, unspecified Status: Acute (2) T2DM (type 2 diabetes mellitus): Code(s): E11.9 - Type 2 diabetes mellitus without complications Status: Acute Additional Plan symptomatic treatment for the headache, Decadron started for 5 days, patient wants to go home but lives 2 [place] farther will definitely need a repeat MRI in 2 weeks was advised to give us a call Review of Systems Review of Systems: All systems reviewed & are unremarkable except as noted in HPI and below Exam Const: General: cooperative, healthy appearing and no acute distress Nutritional Appearance: average body habitus Orientation/consciousness: oriented to person, oriented to place and oriented to time Limitations: no limitations HENMT: Head: normal to inspection Ears: hearing grossly normal bilaterally General nose exam: Normal external nose present Face and sinus: normal facial exam Mouth: Yes Normal oral and palatal mucosa present Eyes: General: appearance normal, both eyes and all related structures Neck: Neck: full ROM Resp: Effort & Inspection: normal respiratory effort Auscultation: clear to auscultation bilaterally Cardio: Rate: regular rate Rhythm: regular rhythm GI: Auscultation: normal bowel sounds Skin: General skin exam: no rashes or lesions noted Neuro: General: patient oriented x3 Cranial nerves: Yes CN's II-XII intact bilaterally Cognition (Neuro): normal cognition Speech: normal speech Gait exam (Neuro): Other gait observations present ( mildly ataxic) Motor exam (neuro): 5/5 motor strength present throughout Sensory Exam: normal sensation Deep tendon reflexes (DTR's): Right triceps reflex intensity grade: 1+, Left triceps reflex intensity grade: 1+, Rt Biceps (C5, C6): 1+, Left biceps reflex intensity grade: 1+, Right brachioradialis reflex intensity grade: 1+, Left brachioradialis reflex intensity grade: 1+, Right patellar reflex intensity grade: 1+, Left patellar reflex intensity grade: 1+, Right ankle reflex intensity grade: 1+ and Left ankle reflex intensity grade: 1+ Plantar Reflex Responses: downgoing: bilateral Coordination: [id number] test normal ( abnormal on the left side) Objective Data Vital Signs Vital Signs: Vital Signs - 24 hr 08/07/20 14:00 08/07/20 16:00 08/07/20 20:00 Temperature 36.2 C L Pulse Rate 86 84 78 Respiratory Rate 16 Blood Pressure 141/72 H Pulse Oximetry 95 08/07/20 20:23 08/07/20 22:00 08/08/20 00:00 Temperature 37.1 C Pulse Rate 84 79 74 Respiratory Rate 18 Blood Pressure 134/65 Pulse Oximetry 97 08/08/20 04:00 08/08/20 06:00 08/08/20 08:00 Temperature 36.6 C Pulse Rate 79 84 79 Respiratory Rate 16 Blood Pressure 161/89 H Pulse Oximetry 99 08/08/20 08:48 Temperature Pulse Rate 79 Respiratory Rate Blood Pressure Pulse Oximetry Intake/Output Intake/Output: Intake & Output 08/05/20 08/06/20 08/07/20 08/08/20 23:59 23:59 23:59 23:59 Intake Total 1100 1320 740 Output Total 1800 900 Balance 1100 -480 -160 Meds/Results Medications: Active Medications Generic Name Dose Route Start Last Admin Trade Name Freq PRN Reason Stop Dose Admin Hydrocodone Bitart/Acetaminophen 1 tab 08/08/20 10:43 Hydrocodone/Acetaminophen (*Crx) 5-325 Mg Tablet PO Q4H PRN Pain Rated 1-3 Hydrocodone Bitart/Acetaminophen 2 tab 08/08/20 10:43 Hydrocodone/Acetaminophen (*Crx) 5-325 Mg Tablet PO Q4H PRN Pain Rated 4-6 Aspirin 81 mg 08/07/20 15:00 08/08/20 08:47 Aspirin 81 Mg Enteric Tablet PO 81 mg QAM CONSUELO Administration Atenolol 50 mg 08/07/20 09:00 08/08/20 08:48 Atenolol 50 Mg Tablet PO 50 mg Q12HR CONSUELO Administration Atorvastatin Calcium 40 mg 08/07/20 09:00 08/08/20 08:47 Atorvastatin 40 Mg Tablet PO 40 mg DAILY CONSUELO Administration Clopidogrel Bisulfate 75 m
[2020-08-08] MEDS: DEXAMETHASONE SOD PHOS INJ 4 MG/ML VIAL IV PUSH ×3 (14:55→23:29)
--- NOTE | 2020-08-08 15:49 | PC.NURSE ---
Patient, Tommy Lamar, did not sign out AMA. He is present, in his room, with a planned discharge tomorrow. This information was posted to the wrong patients notes... 08/07/20 21:46 - Nurse Note by Raleigh Stearns RN [facility] Num: [id number] : 1960 Patient Age: 60 Patient left at 2125, signing an AMA form. He appeared anxious, talking about his twin children and something about his partner having a stroke. He said that they required his presence at another hospital to discuss medical decisions for his unresponsive child. Initialized on 08/07/20 21:46 - END OF NOTE
[2020-08-08 16:49] LABS: Glucose Point of Care 153 (65-105)
--- NOTE | 2020-08-08 18:43 | PC.NURSE ---
Pt complained about continuous headache. IV Tylenol did not help. Zenda given at 1102 with a pain scale of 2, pressure. Reassessment 1202 pain scale 1, achy. Decadron 4mg first dose administered at 1455. At 1700 Pt stated something is helping because the pain is near gone
[2020-08-08 22:11] LABS: Glucose Point of Care 373 (65-105)
[2020-08-09 02:05] VITALS: BMI 28.7
[2020-08-09 06:00] VITALS: BP 120/60; PULSE 73; RESP 18; TEMP 36.6; O2SAT 96
[2020-08-09] MEDS: DEXAMETHASONE SOD PHOS INJ 4 MG/ML VIAL IV PUSH (06:14)
[2020-08-09 08:07] VITALS: PULSE 80
[2020-08-09] MEDS: atenoloL 50 MG TABLET PO (08:07)
[2020-08-09] MEDS: ATORVASTATIN 40 MG TABLET PO (08:08)
[2020-08-09] MEDS: ASPIRIN 81 MG ENTERIC TABLET PO (08:08)
[2020-08-09] MEDS: LORATADINE 10 MG TABLET PO (08:08)
[2020-08-09] MEDS: CLOPIDOGREL BISULFATE 75 MG TABLET PO (08:08)
[2020-08-09] MEDS: lisinopriL 5 MG TABLET BY MOUTH (08:08)
[2020-08-09 08:14] LABS: Glucose Point of Care 166 (65-105)
--- NOTE | 2020-08-09 11:17 | PM.DS ---
DS: Admitting Diagnosis Admitting Diagnosis Admitting Diagnosis: acute stroke DS: Discharge Diagnosis Discharge Diagnosis (1) Acute ischemic stroke: Code(s): I63.9 - Cerebral infarction, unspecified Status: Acute Assessment and Plan: MRI:Scattered left cerebellar infarctions involving approximately 50% of left cerebellar hemisphere, bearing ages from acute to early subacute -CTA showed several small left cerebellar hypodensities consistent with acute to subacute infarcts, 0% stenosis bilaterally. Both vertebral arteries on the CT a are small in the left appears occluded proximally with reconstitution along the cervical spine. -aspirin and plavix started. Plavix only to be taken for 4 weeks and then he will do 81mg of aspirin alone. Atorvastatin started -EKG : sinus rhythm HR 65bpm, echo without significant abnormality -Pt lives 2 [place] away and is going to follow up with pcp about this. Will need repeat MRI in 2 weeks per neurology due to the look of the MRI to ensure no masses or concern for malignancy. He should also talk to his doctor about a holter monitor -Pt had significant HENDRICKSON and neuro recommended 5 days of Decadron due to the location of the stroke and the possibility of swelling -patient was little off balance at discharge but said he felt strong and was walking without assistance. He is not going to drive and is going to follow-up with his primary care physician and a neurologist closer to his home town (2) T2DM (type 2 diabetes mellitus): Code(s): E11.9 - Type 2 diabetes mellitus without complications Status: Acute Assessment and Plan: Last glucose 166 -continue with metformin and glyburide at home. Hold Actos until off Plavix -he understands that the Decadron will increase his glucose for the next week -A1c 7.4 (3) HTN (hypertension): Code(s): I10 - Essential (primary) hypertension Status: Inactive Assessment and Plan: Last blood pressure 120/60 -continue home atenolol and lisinopril (4) Frontal headache: Code(s): R51.9 - Headache, unspecified Status: Acute Assessment and Plan: As above -much improved since admission -continue Decadron DS: Summary Hospital Course Hospital Course: Patient is a 60-year-old male who was driving in the area and started to feel lightheaded/dizzy/off balance when he pulled over to the side of the road and called 911. Temperature 36.8? C, pulse 63, respiratory rate 16, blood pressure 134/88, pulse ox 98% on room air. CBC and BMP within normal limits. Stroke scale 0. No tPA administered. Head CT showed several small left cerebral infarctions could be acute to subacute. MRI and CTA detailed above. Patient was started on aspirin and Plavix and his symptoms improved. He did well with physical therapy and did not require outpatient physical therapy. Neurology saw the patient and recommended an outpatient MRI in 2 weeks due to the location, symptoms and look of the stroke. He wants to ensure there is no concern for metastatic lesions or edema. Since the patient was having significant headaches and the location of the stroke, he recommended Decadron. This improved his headache greatly. He had no signs of atrial fibrillation during his stay. The day Of discharge the patient felt back to baseline but understood the follow-up he needs. He obtained paper documents and a radiology CD to take back to his primary care physician. He is going to follow up with a neurologist there as well. He understands he needs an MRI of the brain in 2 weeks. He also should talk to them about her monitor. He was educated about the changes in his medications. I advised him that he can go back to work and we could to but since he had a cerebellar stroke, he should work on the ground level and avoid heights. Patient should have close follow-up with his primary care physician. He was educated about the worrisome signs and symptoms c
== END 2020-08-09 12:05 | disposition home or self-care (01) | DRG 45 ==
LOC: ANHED 18:04 → ANH3MEDSUR 18:54
PROVIDERS: Nurse Practitioner; Admitting Provider Family Medicine; Emergency Provider Emergency Medicine; Visit Provider Physician Assistant
DX: I63.9 Cerebral infarction, unspecified (principal); E11.9 Type 2 diabetes mellitus without complications; I10 Essential (primary) hypertension; R29.700 NIHSS score 0; R51.9 Headache, unspecified; Z79.84 Long term (current) use of oral hypoglycemic drugs; Z79.899 Other long term (current) drug therapy; Z88.2 Allergy status to sulfonamides
CPT/HCPCS: 36415; 70450; 70496; 70498; 70553; 80048; 80053; 82948; 83036; 83880; 85025; 85610; 85652; 86140; 93005; 93306; 93880; 93970; 96361; 96365; 96375; 97161; 97165; 99285; A9270; A9577; J0131; J1100; J1815; J2765; J7030; Q9967